=== PATIENT | male | born 1940 | race Caucasian/White ===

== ENCOUNTER 2016-09-24 23:32 | Emergency (ER) | payer MEDICARE ==
[~2016-09-24] VITALS: Ht 177.8 cm; Wt 81.8 kg
[2016-09-24 23:39] VITALS: Ht 177.8 cm; Wt 81.8 kg
[2016-09-25 00:18] LABS: ADD SCAN DIFF NO
[2016-09-25 00:23] LABS: BASOPHIL # 0.1 10^3/ul (0.0-0.1); BASOPHILS % 0.7 % (0.0-2.0); EOSINOPHILS # 0.2 10^3/ul (0.0-0.5); EOSINOPHILS % 2.8 % (0.0-7.0); HEMATOCRIT 44.1 % (42.0-52.0); HEMOGLOBIN 14.2 g/dl (14.0-18.0); LYMPHOCYTES # 2.1 10^3/ul (0.8-2.9); LYMPHOCYTES % 28.6 % (15.0-51.0); MEAN CORPUSCULAR HEMOGLOBIN 28.9 pg (29.0-33.0); MEAN CORPUSCULAR HGB CONC 32.2 g/dl (32.0-37.0); MEAN CORPUSCULAR VOLUME 89.8 fl (82.0-101.0); MEAN PLATELET VOLUME 10.1 fl (7.4-10.4); MONOCYTE # 0.8 10^3/ul (0.3-0.9); MONOCYTES % 11.5 % (0.0-11.0); NEUTROPHILS % 56.1 % (39.0-77.0); PLATELET COUNT 248 10^3/UL (140-415); RED BLOOD COUNT 4.91 10^6/ul (4.70-6.10); RED CELL DISTRIBUTION WIDTH 13.9 % (11.5-14.5); WHITE BLOOD COUNT 7.2 10^3/ul (4.8-10.8)
--- NOTE | 2016-09-25 00:30 | RADRPT ---
PROCEDURE: XR Chest. CLINICAL INDICATION: Dyspnea. TECHNIQUE: Single frontal view of the chest. COMPARISON: None. FINDINGS: The cardiomediastinal silhouette is within normal limits. Centrolobular emphysema. 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 The lungs are otherwise clear. No signs of pleural fluid or pneumothora x are seen. The osseous structures and soft tissues are unremarkable. IMPRESSION: No evidence for active cardiopulmonary disease. RPTAT: [facility] Physician Whitney Date Time Electronically viewed and signed by Physician Whitney on 09/25/2016 00:30 RS/
[2016-09-25 00:40] LABS: INR 0.96; PARTIAL THROMBOPLASTIN TIME 25.2 Sec (25.0-35.0); PROTIME 12.8 Sec (12.2-14.2)
[2016-09-25 00:42] LABS: ALANINE AMINOTRANSFERASE 37 IU/L (13-69); ALBUMIN 4.5 g/dl (3.3-4.9); ALBUMIN/GLOBULIN RATIO 1.73; ALKALINE PHOSPHATASE 97 IU/L (42-121); ANION GAP 19 (8-16); ASPARTATE AMINO TRANSFERASE 23 IU/L (15-46); BILIRUBIN,INDIRECT 0.1 mg/dl (0-1.1); BILIRUBIN,TOTAL 0.1 mg/dl (0.2-1.3); BLOOD UREA NITROGEN 24 mg/dl (7-20); CARBON DIOXIDE 25 mmol/L (21-31); CHLORIDE 100 mmol/L (97-110); CREATININE 0.97 mg/dl (0.61-1.24); GLUCOSE 106 mg/dl (70-220); POTASSIUM 4.2 mmol/L (3.5-5.1); SODIUM 140 mmol/L (135-144); TOTAL PROTEIN 7.1 g/dl (6.1-8.1)
[2016-09-25] MEDS ORDERED: METH500T8 PO (00:49)
[2016-09-25] MEDS ORDERED: ZOLP5TAB7 PO (00:49)
[2016-09-25] MEDS ORDERED: IRON18TA PO (00:49)
[2016-09-25] MEDS ORDERED: FERGON PO (00:49)
[2016-09-25] MEDS ORDERED: NAPR220C2 PO (00:49)
[2016-09-25] MEDS ORDERED: MELA1TAB9 PO (00:49)
[2016-09-25] MEDS ORDERED: MULTI PO (00:49)
[2016-09-25] MEDS ORDERED: MIDO5TAB19 PO (00:49)
[2016-09-25] MEDS ORDERED: PRAV40TA76 PO (00:49)
[2016-09-25] MEDS ORDERED: ACET-141 PO (00:49)
[2016-09-25] MEDS ORDERED: ESOM40CA PO (00:50)
[2016-09-25] MEDS ORDERED: SLOMAG PO (00:50)
[2016-09-25] MEDS ORDERED: CHOL100062 PO (00:50)
[2016-09-25 00:53] LABS: B-TYPE NATRIURETIC PEPTIDE 64 PG/ML (0-125)
[2016-09-25 00:57] LABS: TROPONIN-I < 0.012 ng/ml (0.00-0.12)
[2016-09-25 02:44] VITALS: BP 114/63; PULSE 93; RESP 18
--- NOTE | 2016-09-25 03:07 | ERD ---
ER Documentation Chief Complaint Date/Time DATE: 09/25/16 TIME: 03:06 Chief Complaint difficulty "catching breath" after laying down to go to sleep. HPI 76-year-old male difficulty getting rhythm lying down mostly. Patient has had periodic episodes of this in the past. Denies any chest pain. Denies any syncope episodes. Denies any other current issues ROS All systems reviewed and are negative except as per history of present illness. Medications Home Meds Reported Medications Magnesium Chloride* (Mag 64*) 64 Mg Tabsr, 64 MG PO BID, TAB 09/25/16 Esomeprazole Mag Trihydrate (Nexium) Unknown Strength Capsule.dr, 0 PO BID, #60 CAP 09/25/16 Cholecalciferol* (Vitamin D3*) 1,000 Unit Tablet, 1000 UNIT PO DAILY, TAB 09/25/16 Naproxen* (Aleve*) 220 Mg Capsule, 220 MG PO TID for PAIN, #90 CAP 09/25/16 Acetaminophen* (Acetaminophen*) 500 MG Extra Strength Tablet, 500 MG PO Q4H Y for PAIN AND OR ELEVATED TEMP, TAB 09/25/16 Multivitamins* (Theragran*) 1 Tab Tab, 1 TAB PO DAILY, TAB 09/25/16 Iron (Iron) 18 Mg Tablet, 18 MG PO, TAB 09/25/16 Ferrous Gluconate* (Fergon*) 325 Mg Tab, PO BID, TAB 09/25/16 Midodrine* (Midodrine*) 5 Mg Tablet, 5 MG PO QHS, TAB 09/25/16 Pravastatin Sodium* (Pravastatin Sodium*) 40 Mg Tablet, 40 MG PO HS, TAB 09/25/16 Melatonin-Pyridoxine Hcl (Melatonin) 1-10 Mg Tablet, 1 TAB PO HS, TAB 09/25/16 Zolpidem Tartrate* (Zolpidem Tartrate*) 5 Mg Tablet, 2.5 MG PO QHS Y for INSOMNIA, #30 TAB 09/25/16 Methocarbamol* (Methocarbamol*) 500 Mg Tablet, 500 MG PO Q4 for MUSCLE PAIN AND SPASM, TAB TAKE HALF -1 TABLET BY MOUTH FOUR TIMES A DAY NEEDED FOR MUSCLE PAIN AND SPASM 09/25/16 Allergies Allergies: Coded Allergies: latex (Unverified Allergy, Unknown, 09/25/16) PMhx/Soc Hx Alcohol Use: Yes Hx Substance Use: No Hx Tobacco Use: No Smoking Status: Never smoker Physical Exam Vitals Vital Signs Date Time Temp Pulse Resp B/P Pulse Ox O2 Delivery O2 Flow Rate FiO2 09/25/16 01:00 98 1.5 09/25/16 00:14 Nasal Cannula 2.0 09/25/16 00:13 Nasal Cannula 2 09/24/16 23:39 97.6 98 24 158/89 99 Physical Exam Const: [] Head: Atraumatic Eyes: Normal Conjunctiva ENT: Normal External Ears, Nose and Mouth. Neck: Full range of motion..~ No meningismus. Resp: Clear to auscultation bilaterally Cardio: Regular rate and rhythm, no murmurs Abd: Soft, non tender, non distended. Normal bowel sounds Skin: No petechiae or rashes Back: No midline or flank tenderness Ext: No cyanosis, or edema Neur: Awake and alert Psych: Normal Mood and Affect Result Diagram: 09/25/16609/25/166 Results 24 hrs Laboratory Tests Test 09/25/16 00:07 White Blood Count 7.210^3/ul Red Blood Count 4.9110^6/ul Hemoglobin 14.2g/dl Hematocrit 44.1% Mean Corpuscular Volume 89.8fl Mean Corpuscular Hemoglobin 28.9pg Mean Corpuscular Hemoglobin Concent 32.2g/dl Red Cell Distribution Width 13.9% Platelet Count 30958^3/UL Mean Platelet Volume 10.1fl Neutrophils % 56.1% Lymphocytes % 28.6% Monocytes % 11.5% Eosinophils % 2.8% Basophils % 0.7% Nucleated Red Blood Cells % 0.0/100WBC Neutrophils # 4.010^3/ul Lymphocytes # 2.110^3/ul Monocytes # 0.810^3/ul Eosinophils # 0.210^3/ul Basophils # 0.110^3/ul Nucleated Red Blood Cells # 0.010^3/ul Prothrombin Time 12.8Sec Prothrombin Time Ratio 1.0 INR International Normalized Ratio 0.96 Activated Partial Thromboplast Time 25.2Sec Sodium Level 140mmol/L Potassium Level 4.2mmol/L Chloride Level 100mmol/L Carbon Dioxide Level 25mmol/L Anion Gap 19 Blood Urea Nitrogen 24mg/dl Creatinine 0.97mg/dl Glucose Level 106mg/dl Lactic Acid Level 1.3mmol/L Calcium Level 10.0mg/dl Total Bilirubin 0.1mg/dl Direct Bilirubin 0.00mg/dl Indirect Bilirubin 0.1mg/dl Aspartate Amino Transf (AST/SGOT) 23IU/L Alanine Aminotransferase (ALT/SGPT) 37IU/L Alkaline Phosphatase 97IU/L Troponin I < 0.012ng/ml B-Type Natriuretic Peptide 64PG/ML Total Protein 7.1g/dl Albumin 4.5g/dl Globulin 2.60g/dl Albumin/Globulin Ratio 1.73 Procedures/MDM EKG: Rate/Rhythm: Normal Sinus Rhythm QRS, ST, T-waves: No changes consistent w/ acute ischemia Impression: No evidence of ischemia or arrhythmia Chest X-ray 1V Interpreted by me: Soft Tissue: No acute abnormalities Bones: No acute abnormalities Mediastinum/Cardiac Silhouette/Lungs: No acute abnormalities Patient's thoracic symptoms have stabilized while in the department and are stable for outpatient follow up. Exam and work up not consistent w/ ischemia, arrhythmia, PE or dissection. Departure Diagnosis: Primary Impression: Shortness of breath Condition: Stable Patient Instructions: Dyspnea MITZI MCKENZIE Sep 25, 2016 03:07
[2016-09-26 08:28] LABS: AADO2 Arterial 64.3 mmHg (7.0-24.0); Arterial Base Excess 1.6 mmol/L (-3.0-3); Arterial COHb 0.3 % (0.0-3.0); Arterial Fraction of Oxyhgb 96.5 % (93.0-99.0); Arterial HCO3 23.6 mmol/L (22.0-26.0); Arterial MetHb 0.2 % (0.0-1.5); Arterial Total Hemglobin 15.2 g/dl (12.0-18.0); MODE NASAL CANNULA
== END 2016-09-25 02:44 | disposition home or self-care (01) ==
LOC: E/R 23:32
DX: R06.02 Shortness of breath (principal)
CPT/HCPCS: 36415; 36600; 71010; 80053; 82803; 83605; 83880; 84484; 85025; 85610; 85730; 93005